=== PATIENT | female | born 1960 | race Caucasian/White ===

== ENCOUNTER 2017-01-22 08:11 | Emergency (ER) | payer OTHER ==
[2017-01-22] MEDS ORDERED: LEVOTHYROXIN125 MCG PO (08:52)
[2017-01-22] MEDS ORDERED: PRAVASTATIN SOD40 MG PO (08:53)
[2017-01-22] MEDS ORDERED: ZPAK PO (08:54)
[2017-01-22 08:58] VITALS: BP 143/99
== END 2017-01-22 09:06 | disposition home or self-care (01) | DRG 153 ==
LOC: ED 08:11
DX: J06.9 Acute upper respiratory infection, unspecified (principal); R05 Cough

== ENCOUNTER 2017-01-27 10:17 | Emergency (ER) | payer MEDICAID ==
[~2017-01-27 10:17] MED LIST: LEVOTHYROXIN125 MCG PO; PRAVASTATIN SOD40 MG PO; ZPAK PO
[2017-01-27] MEDS ORDERED: PROVENTIL HFA IN (12:53)
[2017-01-27] MEDS ORDERED: MEDDOSEPAK PO (12:53)
[2017-01-27 12:57] VITALS: BP 131/77
== END 2017-01-27 13:04 | disposition home or self-care (01) | DRG 203 ==
LOC: ED 10:17
DX: J40 Bronchitis, not specified as acute or chronic (principal); R05 Cough; R50.9 Fever, unspecified